=== PATIENT | female | born 1965 | race Caucasian/White ===

== ENCOUNTER 2019-07-08 13:33 | Outpatient (CLI) | payer BC, SELFPAY ==
--- NOTE | 2019-07-08 16:20 | DI.MAMMO_ITS ---
EXAM: MG MAMMO SCREENING CLINICAL HISTORY: SCREENING Z12.39, FAM HX Z80.3. TECHNIQUE: Bilateral full field digital CC and MLO mammographic images were obtained with 3D tomosyn thesis and utilizing computer aided detection (CAD). COMPARISON: Available for comparison. FINDINGS: Masses/Architectural Distortion: There is a partially obscured nodule in the upper posterior left ryan ast on the mediolateral oblique view. Microcalcifications: No suspicious pleomorphic-type are seen. Skin Thickening/Nipple Retraction: None. There is motion artifact on the right mediolateral oblique view. This view should be repeated. IMPRESSION: 1. Nodule in the upper left breast on the mediolateral oblique view. Patient motion artifact on the right MLO view. 2. Additional views are requested. Ultrasound may be indicated at that time. BI-RADS Cat 0 - Assessment Incomplete: Need additional imaging evaluation Breast Density - Category C - Heterogeneously dense The mammogram demonstrates the patient's breast tissue is dense. Dense breast tissue is very common a nd is not abnormal but dense breast tissue can make it harder to find cancer on a mammogram. Also, de nse breast tissue may increase their breast cancer risk. This information about the result of the [facility] mogram report was provided to the patient to raise their awareness. Use this report when you speak wi th the patient about their risks for breast cancer, which includes their family history. At that time , you may recommend for more screening tests (Ultrasound or MRI) as they might be useful based on the ir risk. A negative radiographic report should not delay biopsy if a dominant or clinically suspicious mass is present. Up to ten percent of cancers are not identified on mammography. A negative report may reinforce clinical impression. Adenosis and dense breasts may obscure an underlying neoplasm. False positive reports average 6 to 10%. Patient will receive a letter notifying them of these results.
== END 2019-07-08 13:53 ==
PROVIDERS: PCP Family Medicine; Visit Provider Nurse Practitioner Family
DX: Z12.31 Encounter for screening mammogram for malignant neoplasm of breast (principal); Z80.3 Family history of malignant neoplasm of breast; R92.8 Other abnormal and inconclusive findings on diagnostic imaging of breast
CPT/HCPCS: 77063; 77067

== ENCOUNTER 2019-07-12 02:03 | Outpatient (CLI) | payer BC, SELFPAY ==
--- NOTE | 2019-07-12 09:15 | DI.MAMMO_ITS ---
EXAM: US BREAST LT LIMITEDAND BILAT ADDITIONAL CALL BACK VIEWS CLINICAL HISTORY: F/U MAMMO, PARTIALLY OBSCURED NODULE IN UPPER POSTERIOR LT BREAST ON MLO TECHNIQUE: Ultrasound performed using standard protocol. Additional images are interpreted according to the usual protocol including tomosynthesis and 2D imag ing. FINDINGS: Left breast ultrasound and left breast additional mammographic views are interpreted in conjunction. Additionally a repeat right MLO view was obtained to complete recent mammographic screening examinati on July 08. There is a questionable area of nodularity identified on MLO view of recent mammogram. Additional leslie mographic spot view of this area in MLO projection shows no evidence of a mass. Breast ultrasound fadumo ws a cyst measuring 3 millimeters in diameter in the 2 o'clock position in the left breast, 4 cm from the nipple, this may correspond to the tiny mammographically identified radiodensity. No solid mass identified. Repeat right MLO view was obtained because of motion artifact on recent MLO view. The repeat MLO view shows no evidence of a mass or clumped microcalcification. IMPRESSION: No specific evidence of malignancy at this time. I would suggest that follow-up unilateral left breas t mammogram be obtained in 6 months. Category 3. Breast density, category C. BI-RADS Cat 3 - 6 month - Probably Benign Finding: Recommend follow-up mammography in 6 months. Breast Density - Category C - Heterogeneously dense.
== END 2019-07-12 02:23 ==
PROVIDERS: PCP Family Medicine; Visit Provider Nurse Practitioner Family
DX: Z12.31 Encounter for screening mammogram for malignant neoplasm of breast (principal); R92.8 Other abnormal and inconclusive findings on diagnostic imaging of breast; N60.02 Solitary cyst of left breast
CPT/HCPCS: 76642; 77063; 77067

== ENCOUNTER 2020-01-08 02:50 | Outpatient (CLI) | payer BC, SELFPAY ==
--- NOTE | 2020-01-08 | DI.MAMMO_ITS ---
EXAM: MG MAMMO DIAGNOSTIC UNI CLINICAL HISTORY: DIAGNOSTIC, 6 MO F/U, F/U ANL MAMMO, R92.8 TECHNIQUE: Mammograms were interpreted according to the usual protocol including computer analysis w [employer] CAD system, tomosynthesis and C-view imaging. COMPARISON: FINDINGS: Today's left breast mammogram was obtained to re-evaluate questionable nodularity seen on prior exami nation July 2019. Findings are less prominent on the current examination. No new mass or clumpe d microcalcification seen. IMPRESSION: No specific evidence of malignancy at this time. I would suggest that routine screening examination s resume with a bilateral mammogram in 6 months. BI-RADS Cat 3 - 6 month - Probably Benign Finding: Recommend follow-up mammography in 6 months: Breast Density - Category C - Heterogeneously dense
== END 2020-01-08 03:10 ==
PROVIDERS: PCP Family Medicine; Visit Provider Nurse Practitioner Family
DX: R92.8 Other abnormal and inconclusive findings on diagnostic imaging of breast; R92.2 Inconclusive mammogram
CPT/HCPCS: 77061; 77065; G0279

== ENCOUNTER 2020-05-13 11:19 | Outpatient (REF) | payer BC, SELFPAY ==
[2020-05-13 22:15] LABS: HCT 42.6 % (36.0-46.0); HGB 14.7 g/dL (11.2-15.7); MCH 30.4 pg (27.0-33.0); MCHC 34.5 % (32.0-36.0); MCV 88.2 fL (80-95); MPV 11.8 fL (8.0-11.0); Platelet Count 238 10^3/uL (130-400); RBC 4.83 10^6/uL (3.93-5.22); RDW 11.9 % (11.7-14.6); RDW-SD 38.4 fL; WBC 5.23 10^3/uL (4.4-10.8)
[2020-05-13 22:42] LABS: Anion Gap 10.1 mmol/L (3-11); BUN 22 mg/dL (7-18); CO2 25.9 mmol/L (21.0-32.0); CREATININE 0.86 mg/dL (0.55-1.02); Calcium 9.2 mg/dL (8.5-10.1); Calculated LDL 140 mg/dL (<100); Chloride 102 mmol/L (98-107); Cholesterol 229 mg/dL (<200); Glucose 115 mg/dL (74-106); HDL Cholesterol 37 mg/dL (40-60); Potassium 4.5 mmol/L (3.5-5.1); Sodium 138 mmol/L (136-145); TSH (W/Ref FT4) 0.96 uIU/mL (0.36-3.74); Triglyceride 264 mg/dL (<150)
== END 2020-05-13 11:39 ==
LOC: NCHCN 11:19
PROVIDERS: PCP Family Medicine
DX: R00.2 Palpitations (principal); E66.9 Obesity, unspecified
CPT/HCPCS: 80048; 80061; 85027; 84443

== ENCOUNTER 2020-06-30 03:16 | Outpatient (CLI) | payer BC, SELFPAY ==
[2020-07-01 12:30] LABS: COVID-19 RT-PCR UVMMC Result Negative (Negative)
== END 2020-06-30 03:36 ==
PROVIDERS: PCP Family Medicine; Visit Provider Surgery
DX: Z11.52 Encounter for screening for COVID-19 (principal); Z01.818 Encounter for other preprocedural examination
CPT/HCPCS: U0003

== ENCOUNTER 2020-07-03 00:56 | Outpatient (CLI) | payer BC, SELFPAY | END 2020-07-03 01:16 | PROVIDERS: PCP Family Medicine | DX: R00.2 Palpitations (principal) | CPT/HCPCS: 93246 ==

== ENCOUNTER 2020-07-03 10:13 | Day surgery (SDC) | payer BC, SELFPAY ==
[2020-07-03 10:23] VITALS: BP 138/94; PULSE 78; RESP 18; TEMP 36.5; O2SAT 97
[2020-07-03] MEDS: Lactated Ringers 1,000 ML 80 ML IV (10:37)
--- NOTE | 2020-07-03 11:05 | W.COLOREPORT ---
Date of service: 07/03/20 Time of Service: 11:06 Colonoscopy Report Date of procedure: 07/03/20 Pre-op diagnosis general: serrated adenoma Surgeon: Omayra Dunn Anesthesia proc note operative: GETA Pathology: none sent Disposition: PACU Prep: Miralax/Dulcolax Procedure Description: After informed consent was obtained the patient was taken to the procedure room and placed in a left decubitous position. Monitors were applied and a time out was done. The patients name, date of , procedure, allergies to medications and metal in their body was reviewed. The patient was then sedated. Once sedated and comfortable a rectal exam was done. External exam was normal. Internal exam revealed a normal sphincter tone and no palpable masses. The scope was then introduced and retrofelexed. no internal hemorrhoids were identified. The scope was then advanced to the cecum w/ out difficulty. The TI and appendiceal orifice were identified. The prep was good. The scope was then slowly retracted over 10 minutes back into the rectum. There are in the very minute beginnings of a few diverticula in the sigmoid colon. These are of no consequence at this time. There are no polyps today. The mucosa is pink and healthy. She does have a very tortuous colon with very sharp turns at the hepatic and splenic flexure. Polyps were removed at none today . The scope was removed and the patient was woken up and taken back to Same day surgery in stable condition. The patient tolerated the procedure well and there were no immediate complications. Follow up: The patient should follow up in 5 years unless they develop changes in bowel habits or other new gastrointestinal complaints.
[2020-07-03] MEDS: Dicyclomine 10 MG CAP PO (11:16)
--- NOTE | 2020-07-03 12:31 | W.PM.DSUDISC ---
Discharge Plan Disposition Patient Disposition: HOME Condition: Good Discharge Details Reason For Visit: colon scope Attending Provider: Omayra Dunn Primary Care Provider: Indigo Noel Home Meds and New Rx's Prescriptions: New dicyclomine 10 mg capsule 10 mg PO TID PRN (Reason: abdominal discomfort/cramping) Qty: 30 RF: 0 Continued metoprolol succinate 25 mg tablet extended release 24 hr 25 mg PO DAILY RF: 0 multivitamin [Daily Multi-Vitamin] 1 EACH tablet 1 ea PO DAILY RF: 0 zolpidem [Ambien] 5 MG tablet 5 mg PO HS RF: 0 fexofenadine 180 MG tablet 180 mg PO DAILY RF: 0 fluticasone propionate 16 GM spray,suspension 50 mcg NS DAILY RF: 0 epinephrine [EpiPen 2-Chris] 0.3 MG/0.3 ML auto-injector 0.3 mg IM PRN RF: 0 melatonin 5 mg capsule 5 mg PO HS RF: 0 Discontinued polyethylene glycol 3350 17 gram/dose powder 238 g PO ONCE Qty: 238 RF: 0 bisacodyl [Dulcolax (bisacodyl)] 5 mg tablet,delayed release (DR/EC) 5 mg PO ONCE Qty: 4 RF: 0 Discharge Instructions Additional Instructions: Findings:normal today/no polyps Follow up:repeat scope in 5 yrs time Please call if you develop: fevers >101.5 Nausea or Vomiting Abdominal pain that is not transient DAY SURGERY UNIT POST COLONOSCOPY INSTRUCTIONS 1. Because there will be medication in your system for the next 24 hours, you may feel a little sleepy. Your coordination will be affected. Therefore: a. Do not drive or operate dangerous equipment for 24 hours. b. Do not drink alcohol beverages for 24 hours (not even beer). c. Plan to go home and rest for the day. 2. Generally there are no restrictions on your activity after a day or so has gone by, but you may feel a bit fatigued for a few days. 3 After you arrive home you may have a light meal and return to a normal diet as you can tolerate it without feeling sick to your stomach. 4. After surgery, you may feel pain or discomfort. This should be only transient, but if it persists please contact your doctor. 5. If there are any questions regarding the findings of your procedure, please feel free to contact your doctor. 6. If you are unable to contact your doctor with a problem, contact the hospital at [phone]. 4. Continue all your regular medications unless directed otherwise. I understand the above instructions and have no questions. Signature of Patient or Responsible Adult Escort Date/Time Name of Responsible Adult Escort Signature of Nurse Date/Time Activity:: No lifting over 20 pounds or strenuous activity x24 hours. Diet:: Small light meals x24 hours. Discharge Orders Discharge Orders: Discharge Order (Routine); Ordered 07/03/20 Ordered By: Omayra Dunn DS: Diagnosis Discharge Diagnosis (1) PONV (postoperative nausea and vomiting): Status: Acute (2) Adenomatous colon polyp: Status: Acute
[2020-07-03 12:55] VITALS: BP 104/40; PULSE 60; RESP 18; TEMP 36.2; O2SAT 97
--- NOTE | 2020-07-20 08:36 | W.ZIOMONITOR ---
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 ?The patient was normal sinus rhythm for the majority of the recording with an average heart rate of 72 bpm. ?There were rare PACs and rare PVCs. ?There were 10 episodes of supraventricular tachycardia with the longest lasting 9 beats at a rate of 166 bpm. The patient reported no symptoms during these episodes. There were no episodes of ventricular tachycardia. ?There were no episodes of atrial fibrillation, no pauses greater than 3 seconds and no evidence of high degree heart block. ?There were 2 patient triggered events associated with sinus rhythm and sinus tachycardia.
--- NOTE | 2020-07-27 09:56 | ZIOP_ITS ---
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 ?The patient was in normal sinus rhythm for the majority of the recording with an average heart rate of 72 bpm. ?There were 10 episodes of supraventricular tachycardia with the longest lasting 9 beats at a rate of 166 bpm. ?There were rare PVCs and no episodes of ventricular tachycardia. ?There were no episodes of atrial fibrillation, no pauses greater than 3 seconds and no evidence of high degree heart block. ?There were 2 patient triggered events which were associated with sinus rhythm and sinus tachycardia.
== END 2020-07-03 13:30 | disposition home or self-care (01) ==
PROVIDERS: PCP Family Medicine; Visit Provider Surgery
PROC: 0DJD8ZZ Inspection of Lower Intestinal Tract, Via Natural or Artificial Opening Endoscopic (ICD-10-PCS; CPT 45378; principal; 2020-07-03 10:30)
DX: Z12.11 Encounter for screening for malignant neoplasm of colon (principal); Z86.010 Personal history of colon polyps; K57.30 Diverticulosis of large intestine without perforation or abscess without bleeding; Q43.8 Other specified congenital malformations of intestine; K21.9 Gastro-esophageal reflux disease without esophagitis
CPT/HCPCS: 45378; J2001; J2405; J2704

== ENCOUNTER 2021-01-26 14:11 | Outpatient (REF) | payer BC, SELFPAY ==
[2021-01-26 17:04] LABS: ALT 28 U/L (14-59); AST 14 U/L (15-37); Albumin 4.2 g/dL (3.4-5.0); Alkaline Phosphatase 62 U/L (46-116); Anion Gap 11.6 mmol/L (3-11); BUN 21 mg/dL (7-18); Bilirubin, Total 0.4 mg/dL (0.2-1.0); CO2 26.4 mmol/L (21.0-32.0); CREATININE 0.9 mg/dL (0.55-1.02); Calculated LDL 160 mg/dL (<100); Chloride 106 mmol/L (98-107); Cholesterol 238 mg/dL (<200); Glucose 102 mg/dL (74-106); HDL Cholesterol 38 mg/dL (40-60); Potassium 4.4 mmol/L (3.5-5.1); Sodium 144 mmol/L (136-145); Total Protein 7.3 g/dL (6.4-8.2); Triglyceride 200 mg/dL (<150)
[2021-01-26 17:07] LABS: Hemoglobin A1C 5.2 % (<5.7)
== END 2021-01-26 14:12 | disposition home or self-care (01) ==
LOC: NCHCN 14:11
PROVIDERS: PCP Family Medicine; Visit Provider Family Medicine
DX: Z00.00 Encounter for general adult medical examination without abnormal findings (principal); E66.9 Obesity, unspecified
CPT/HCPCS: 80053; 80061; 83036

== ENCOUNTER 2021-02-15 02:45 | Outpatient (CLI) | payer BC, SELFPAY ==
--- NOTE | 2021-02-15 | DI.MAMMO_ITS ---
Exam(s) MAMMO SCREENING EXAM: MAMMO SCREENING CLINICAL HISTORY: SCREENING, Z12.31 TECHNIQUE: Mammograms were interpreted according to the usual protocol including computer analysis w [employer] CAD system, tomosynthesis and C-view imaging. COMPARISON: 2010 through 2019 FINDINGS: The breasts are composed of scattered fibroglandular densities, Breast Density category B. No suspicious masses or suspicious microcalcifications are seen. No skin thickening or abnormal axillary lymph nodes are seen. There has been no significant change from prior exams. IMPRESSION: BI-RADS Category 1, Negative mammogram Yearly screening mammography is recommended. Breast Density - Category B, scattered fibroglandular densities. A negative radiographic report should not delay biopsy if a dominant or clinically suspicious mass is present. Up to ten percent of cancers are not identified on mammography. A negative report may reinforce clinical impression. Adenosis and dense breasts may obscure an underlying neoplasm. False positive reports average 6 to 10%. Patient will receive a letter notifying them of these results.
== END 2021-02-15 03:05 ==
PROVIDERS: PCP Family Medicine; Visit Provider Family Medicine
DX: Z12.31 Encounter for screening mammogram for malignant neoplasm of breast (principal)
CPT/HCPCS: 77063; 77067

== ENCOUNTER 2021-06-02 18:28 | Outpatient (REF) | payer BC, SELFPAY ==
[2021-06-02 21:16] LABS: Abs Immature Grans 0.02 10^3/uL (0.0-0.06); Absolute Basophil Count 0.03 10^3/uL (0.0-0.2); Absolute Eosinophil Count 0.12 10^3/uL (0.0-0.7); Absolute Lymphocyte Count 2.16 10^3/uL (1.2-3.4); Absolute Monocyte Count 0.45 10^3/uL (0.1-0.8); Absolute Neutrophil Count 3.34 10^3/uL (1.2-6.7); Basophils % 0.5; HGB 15.2 g/dL (11.2-15.7); Immature Grans % 0.3; Lymphocytes % 35.3; MCH 30.3 pg (27.0-33.0); MCHC 33.8 % (32.0-36.0); MCV 89.8 fL (80-95); MPV 11.2 fL (8.0-11.0); Monocytes % 7.4; Neutrophils % 54.5; Nucleated RBC 0 %; Platelet Count 208 10^3/uL (130-400); RBC 5.01 10^6/uL (3.93-5.22); RDW 11.7 % (11.7-14.6); RDW-SD 38.3 fL; WBC 6.12 10^3/uL (4.4-10.8)
[2021-06-02 21:29] LABS: ALT 37 U/L (14-59); AST 22 U/L (15-37); Albumin 4.6 g/dL (3.4-5.0); Alkaline Phosphatase 69 U/L (46-116); Anion Gap 10.9 mmol/L (3-11); BUN 24 mg/dL (7-18); Bilirubin, Total 0.7 mg/dL (0.2-1.0); CO2 26.1 mmol/L (21.0-32.0); CREATININE 0.9 mg/dL (0.55-1.02); Calcium 9.4 mg/dL (8.5-10.1); Chloride 101 mmol/L (98-107); Glucose 99 mg/dL (74-106); Potassium 3.8 mmol/L (3.5-5.1); Sodium 138 mmol/L (136-145)
== END 2021-06-02 18:29 | disposition home or self-care (01) ==
LOC: NCHCN 18:28
PROVIDERS: PCP Family Medicine; Visit Provider Family Medicine
DX: R00.2 Palpitations (principal); Z00.00 Encounter for general adult medical examination without abnormal findings
CPT/HCPCS: 80053; 84443; 85025

== ENCOUNTER → 2021-10-29 17:57 | Outpatient (CLI) | payer BC, SELFPAY ==
--- NOTE | 2021-10-29 | DI.RAD_ITS ---
Exam(s) XR SHOULDER LT COMPLETE 2+V EXAM: XR SHOULDER LT COMPLETE 2+V CLINICAL HISTORY: Right shoulder pain. TECHNIQUE: 2D digital imaging was performed of the left shoulder. Four images were obtained. AP, G rashey, and Y views were obtained. COMPARISON: No exams were available for comparison FINDINGS: BONES: No acute fracture is present. No bony destructive lesion is seen. JOINTS: No dislocation present. Degenerative changes are seen at the acromioclavicular and glenohumer al joints. SOFT TISSUE: Calcifications are seen in the soft tissues adjacent to the greater tuberosity likely re flecting calcific tendinitis. IMPRESSION: No acute fracture or dislocation. DATA REPOSITORY: RADIATION DOSE DELIVERED:
--- NOTE | 2021-10-29 18:24 | DI.VRAD_ITS ---
PROCEDURE INFORMATION: Exam: XR Left Shoulder Exam date and time: 10/29/2021 6:10 PM Age: 56 years old Clinical indication: Other: Right shoulder pain TECHNIQUE: Imaging protocol: XR Left shoulder. Views: 2 or more views. COMPARISON: No relevant prior studies available. FINDINGS: Bones/joints: No acute fracture or malalignment. No significant degenerative change. No agressive bone destruction. Soft tissues: Soft tissue calcification superior and lateral to the humeral head along the expected course of the supraspinatus tendon, likely calcific tendinitis. IMPRESSION: 1. No acute osseous abnormality. Findings suggest calcific tendinitis. 2. If clinical concern for occult fracture, consider followup radiographs in 7-10 days. Dictated and Authenticated by: Joana Del Real MD. Ordering:ANTONINA Houston MD
== END ==
PROVIDERS: PCP Family Medicine; Visit Provider Nurse Practitioner Family
DX: M25.511 Pain in right shoulder (principal); M75.31 Calcific tendinitis of right shoulder
CPT/HCPCS: 73030

== ENCOUNTER → 2022-05-11 02:45 | Outpatient (CLI) | payer BC, SELFPAY ==
--- NOTE | 2022-05-11 16:05 | DI.MAMMO_ITS ---
Exam(s) MAMMO SCREENING EXAM: MAMMO SCREENING CLINICAL HISTORY: SCREENING, Z12.31, FAMILY H/O BREAST CA,Z80.3 TECHNIQUE: Mammograms were interpreted according to the usual protocol including computer analysis w [employer] CAD system, tomosynthesis and C-view imaging. COMPARISON: FINDINGS: The breasts are heterogeneously dense. No dominant mass or clumped microcalcification is identified in either breast. Current examination is compared with multiple previous examinations including Sept ember 2020 and there has been no gross interval change in appearance in comparison with the prior zoe dies. IMPRESSION: No specific evidence of malignancy at this time. Routine screening examinations are suggested at yea rly intervals due to the family history of breast carcinoma. BI-RADS Category 1 - Negative Breast Density - Category C - Heterogeneously dense
== END ==
PROVIDERS: PCP Family Medicine; Visit Provider Family Medicine
DX: Z12.31 Encounter for screening mammogram for malignant neoplasm of breast (principal); Z80.3 Family history of malignant neoplasm of breast
CPT/HCPCS: 77063; 77067

== ENCOUNTER 2023-01-18 16:03 | Outpatient (REF) | payer BC, SELFPAY ==
[2023-01-19 23:03] LABS: Campylobacter PCR Negative (Negative); Salmonella PCR Negative (Negative); Shiga Toxin PCR Negative (Negative); Shigella/Enteroinvasive Ecoli Negative (Negative)
== END 2023-01-18 16:04 | disposition home or self-care (01) ==
LOC: NCHCN 16:03
PROVIDERS: PCP Family Medicine; Visit Provider Family Medicine
DX: R19.7 Diarrhea, unspecified (principal)
CPT/HCPCS: 87329; 87505; 87177

== ENCOUNTER 2023-01-23 04:30 | Outpatient (CLI) | payer BC, SELFPAY ==
[2023-01-23 08:48] LABS: ALT 37 U/L (14-59); AST 23 U/L (15-37); Albumin 3.9 g/dL (3.4-5.0); Alkaline Phosphatase 65 U/L (46-116); Anion Gap 11.3 mmol/L (3-11); BUN 15 mg/dL (7-18); Bilirubin, Total 0.7 mg/dL (0.2-1.0); CO2 23.7 mmol/L (21.0-32.0); CREATININE 0.9 mg/dL (0.55-1.02); Calcium 9.1 mg/dL (8.5-10.1); Calculated LDL 144 mg/dL (<100); Chloride 100 mmol/L (98-107); Cholesterol 245 mg/dL (<200); Estimated GFR 73.64 (mL/min/1.73m2); Glucose 105 mg/dL (74-106); HDL Cholesterol 39 mg/dL (40-60); Sodium 135 mmol/L (136-145); Total Protein 7.5 g/dL (6.4-8.2); Triglyceride 312 mg/dL (<150)
[2023-01-23 09:14] LABS: Vitamin D 25 Total 79.1 ng/mL (30-100)
== END 2023-01-23 04:31 | disposition home or self-care (01) ==
LOC: LBO 04:30
PROVIDERS: PCP Family Medicine; Visit Provider Family Medicine
DX: Z00.00 Encounter for general adult medical examination without abnormal findings (principal)
CPT/HCPCS: 36415; 80053; 80061; 82306

== ENCOUNTER 2023-02-27 14:52 | Outpatient (CLI) | payer BC, SELFPAY | END 2023-02-27 14:53 | disposition home or self-care (01) | PROVIDERS: PCP Family Medicine; Visit Provider Family Medicine | DX: R00.2 Palpitations (principal) | CPT/HCPCS: 93270 ==

== ENCOUNTER 2023-03-06 15:37 | Outpatient (REF) | payer BC, SELFPAY ==
--- NOTE | 2023-03-06 15:15 | PAPFT_PTH ---
PATIENT: Shea Kruse LOC: [facility] U#:[id number] AGE/SX: 57/F ROOM: RE03/06/[address]: Elvia Kaplan NP : 1965 BED: DIS: 03/06/2023 SPEC #: [id number] RECD: 03/06/23 18:21 STATUS: DONYA REQ #: [id number] IJEOMA: 03/06/23 15:[address]: Ashwin Kaplan DEPT: [facility] [place] Cytology RECD BY: Mary Alice Rascon ENTERED: 03/06/23 18:21 SP TYPE: PAPFT OTHR DR: Indigo Noel Tissues: 1 - CX/ENDOCX FOR PAP SMEARS Procedures: PAP THIN PREP/UVM Screening HPV DNA PROBE Comments: [id number]
== END 2023-03-06 15:38 | disposition home or self-care (01) ==
LOC: LBN 15:37
PROVIDERS: PCP Family Medicine; Visit Provider Nurse Practitioner Women's Health
DX: Z12.4 Encounter for screening for malignant neoplasm of cervix (principal); Z11.51 Encounter for screening for human papillomavirus (HPV)
CPT/HCPCS: 88142; 87624

== ENCOUNTER 2023-04-03 07:52 | Outpatient (CLI) | payer BC, SELFPAY ==
--- NOTE | 2023-04-03 08:42 | W.CARDEVENT ---
Date of service: 04/03/23 Time of Service: 08:42 Cardiac Event Recorder Referring Provider:: Indigo Noel Indications:: Palpitations Cardiac Event Note: This is a cardiac event recorder ordered for palpitations. Rhythm throughout was sinus. Average heart rate was 65. Minimum was 56, maximum 112 There were no significant ventricular dysrhythmias. There was no atrial fibrillation, no high-grade AV block, no pauses greater than 3 seconds There were rare atrial premature beats Patient symptoms were reported. The majority of these corresponded to sinus rhythm, only rarely due to atrial premature beats
== END 2023-04-03 07:53 | disposition home or self-care (01) ==
LOC: CARDOPNVT 07:52
PROVIDERS: PCP Family Medicine; Visit Provider Internal Medicine Cardiovascular Disease
DX: R00.2 Palpitations (principal)

== ENCOUNTER → 2023-05-15 02:57 | Outpatient (CLI) | payer BC, SELFPAY ==
--- NOTE | 2023-05-15 | DI.MAMMO_ITS ---
Exam(s) MAMMO SCREENING EXAM: MAMMO SCREENING CLINICAL HISTORY: Z12.31 Screening; Z80.3 Fam Hx breast cancer TECHNIQUE: Mammograms were interpreted according to the usual protocol including computer analysis w ith CAD system, tomosynthesis and C-view imaging. COMPARISON: No exams were available for comparison 2014 through 2021 FINDINGS: The breasts are composed of scattered fibroglandular densities, Breast Density category B. No suspicious masses or suspicious microcalcifications are seen. No skin thickening or abnormal axillary lymph nodes are seen. There has been no significant change from prior exams. IMPRESSION: BI-RADS Category 1, Negative mammogram Yearly screening mammography is recommended. Breast Density - Category B, scattered fibroglandular densities. A negative radiographic report should not delay biopsy if a dominant or clinically suspicious mass is present. Up to ten percent of cancers are not identified on mammography. A negative report may reinforce clinical impression. Adenosis and dense breasts may obscure an underlying neoplasm. False positive reports average 6 to 10%. Patient will receive a letter notifying them of these results.
== END ==
PROVIDERS: PCP Family Medicine; Visit Provider Family Medicine
DX: Z12.31 Encounter for screening mammogram for malignant neoplasm of breast (principal); Z80.3 Family history of malignant neoplasm of breast
CPT/HCPCS: 77063; 77067

== ENCOUNTER 2023-06-12 14:52 | Outpatient (CLI) | payer BC, SELFPAY ==
--- NOTE | 2023-06-12 14:15 | DI.RAD_ITS ---
Exam(s) XR KNEE LT 4V AP,LAT,HENRIQUE,PAT EXAM: XR KNEE LT 4V AP,LAT,HENRIQUE,PAT CLINICAL HISTORY: left knee pain. TECHNIQUE: 2D digital imaging was performed of the left knee. Four images were obtained. Merchant, AP, lateral and PA tunnel views were obtained. COMPARISON: No exams were available for comparison FINDINGS: BONES: No acute fracture is present. No bony destructive lesion is seen. There are enthesophytes at the anterior patella. JOINTS: The knee is normally aligned. No joint effusion is seen. No loose body. SOFT TISSUE: Normal. IMPRESSION: No acute abnormality. DATA REPOSITORY: RADIATION DOSE DELIVERED:
== END 2023-06-12 14:53 | disposition home or self-care (01) ==
LOC: DIORS 14:53
PROVIDERS: PCP Family Medicine; Visit Provider Physician Assistant
DX: M25.562 Pain in left knee (principal)
CPT/HCPCS: 73564

== ENCOUNTER 2024-04-15 03:44 | Outpatient (CLI) | payer BC, SELFPAY ==
--- NOTE | 2024-05-01 09:28 | TELEFU_ITS ---
Date of service: 04/15/24 Time of Service: 15:00 Nutrition Note NOTE: Shea referred for nutrition visit regarding weight mgt. 03/18/24 she was 204lbs at 58 with a BMI of 40. She states she has been hovering between 197- 207 without being able to move out of that zone. Had some success with Atkins diet in the past with a 40lb weight loss when she was in her 40's. We discussed nutrition mostly but also emphasized stress mgt, sleep quality, and exercise as major influencers towards her weight loss goals. We reviewed her recommendations for macros - 1600calories, 160g total carbs, 120g protein, and 53g fat reviewed sample menus discussed eating patterns and being proactive planning 3 meals and 0-2 PLANNED snacks per day and reviewed true snack vs handout/pacifier type of food choices. Shea took my card to contact with any questions or need/desire for follow up. Recommendations: considering her long standing BMI >35 would suggest discussion about initiating GLP/GIP if insurance would approve Time Spent in Nutritional Counseling and Treatment: 25 min
== END 2024-04-15 03:45 | disposition home or self-care (01) ==
LOC: DS 03:44
PROVIDERS: PCP Family Medicine; Visit Provider Dietitian, Registered
DX: Z71.3 Dietary counseling and surveillance (principal)
CPT/HCPCS: 00123; 97802

== ENCOUNTER 2024-05-21 01:47 | Outpatient (CLI) | payer BC, SELFPAY ==
--- NOTE | 2024-05-21 15:15 | DI.MAMMO_ITS ---
Exam(s) MAMMO SCREENING EXAM: MAMMO SCREENING CLINICAL HISTORY: screening TECHNIQUE: Bilateral full field digital CC and MLO mammographic images were obtained with 3D tomosyn thesis and utilizing computer aided detection (CAD). COMPARISON: Available for comparison. FINDINGS: Masses/Architectural Distortion: None seen. Microcalcifications: No suspicious pleomorphic-type are seen. Skin Thickening/Nipple Retraction: None. IMPRESSION: 1. No significant interval change with no specific features of malignancy noted. 2. Unless there is more urgent need, screening mammography is recommended, as per [employer] guidelines. BI-RADS Category 1 - Negative Breast Density - Category C - Heterogeneously dense Breast density category C or D implies that the patient has dense breast tissue. Dense breast tissue is very common and is not abnormal but dense breast tissue can make it harder to find cancer on a ma mmogram. Also, dense breast tissue may increase their breast cancer risk. This information about the result of the mammogram report was provided to the patient to raise their awareness. Use this report when you speak with the patient about their risks for breast cancer, which includes their family hist ory. At that time, you may recommend for more screening tests (Ultrasound or MRI) as they might be us eful based on their risk. A negative radiographic report should not delay biopsy if a dominant or clinically suspicious mass is present. Up to ten percent of cancers are not identified on mammography. A negative report may reinforce clinical impression. Adenosis and dense breasts may obscure an underlying neoplasm. False positive reports average 6 to 10%. Patient will receive a letter notifying them of these results.
== END 2024-05-21 02:07 ==
LOC: DI 01:47
PROVIDERS: PCP Family Medicine; Visit Provider Nurse Practitioner Women's Health
DX: Z12.31 Encounter for screening mammogram for malignant neoplasm of breast (principal); R92.333 Mammographic heterogeneous density, bilateral breasts
CPT/HCPCS: 77063; 77067

== ENCOUNTER 2025-03-05 20:58 | Outpatient (REF) | payer BC, SELFPAY ==
[2025-03-05 21:46] LABS: HCT 41.9 % (36.0-46.0); HGB 14.8 g/dL (11.2-15.7); MCH 30.8 pg (27.0-33.0); MCHC 35.3 % (32.0-36.0); MCV 87 fL (80-95); MPV 11.3 fL (8.0-11.0); Platelet Count 212 10^3/uL (130-400); RBC 4.81 10^6/uL (3.93-5.22); RDW 12.1 % (11.7-14.6); RDW-SD 38.9 fL; WBC 5.80 10^3/uL (4.4-10.8)
[2025-03-05 22:08] LABS: ALT 32 U/L (14-59); AST 19 U/L (15-37); Albumin 4.4 g/dL (3.4-5.0); Alkaline Phosphatase 82 U/L (46-116); Anion Gap 11.7 mmol/L (3-11); BUN 21 mg/dL (7-18); Bilirubin, Total 0.6 mg/dL (0.2-1.0); CO2 25.3 mmol/L (21.0-32.0); Calcium 9.2 mg/dL (8.5-10.1); Chloride 103 mmol/L (98-107); Estimated GFR 72.73 (mL/min/1.73m2); Glucose 91 mg/dL (74-106); Potassium 3.8 mmol/L (3.5-5.1); Sodium 140 mmol/L (136-145); Total Protein 7.5 g/dL (6.4-8.2)
[2025-03-05 22:29] LABS: Calculated LDL 156 mg/dL (<100); Cholesterol 265 mg/dL (<200); HDL Cholesterol 36 mg/dL (>or=50); Triglyceride 365 mg/dL (<150)
== END 2025-03-05 20:59 | disposition home or self-care (01) ==
LOC: NCHCN 20:58
PROVIDERS: PCP Family Medicine; Visit Provider Family Medicine
DX: Z00.00 Encounter for general adult medical examination without abnormal findings (principal)
CPT/HCPCS: 80053; 80061; 85027